=== PATIENT | female | born 1980 | race Caucasian/White ===

== ENCOUNTER → 2021-07-08 08:34 | Outpatient (CLI) | payer OTHER, SELFPAY ==
[2021-07-08 09:31] LABS: Add Manual Diff / Slide Review NO; Basophils Absolute Auto 100 /uL (0-100); Basophils Percent Auto 1.1 % (0-2); Eosinophils Absolute Auto 500 /uL (0-450); Eosinophils Percent Auto 5.6 % (2-4); Hematocrit 35.4 % (36-46); Hemoglobin 12.1 g/dL (12.0-16.0); Lymphocytes Absolute Auto 2200 /uL (1100-4500); Lymphocytes Percent Auto 23.6 % (25-40); Mean Corpuscular HGB Conc 34.2 % (30-36); Mean Corpuscular Volume 78.9 fL (80-100); Monocytes Absolute Auto 600 /uL (0-900); Monocytes Percent Auto 6.1 % (3-14); Neutrophils Absolute Auto 6000 /uL (1500-7000); Neutrophils Percent Auto 63.6 % (50-75); Platelet Count 328 X10^3/uL (150-400); Red Blood Cell Count 4.49 X10^6/uL (4.0-5.2); White Blood Cell Count 9.4 X10^3/uL (4.5-11.0)
[2021-07-08 09:44] LABS: Alanine Aminotransferase 18 IU/L (<35); Albumin 4.1 g/dL (3.5-5.0); Albumin Globulin Ratio 1.1 (1.0-2.8); Alkaline Phosphatase 56 U/L (38-126); Aspartate Aminotransferase 25 IU/L (14-36); BUN Creatinine Ratio 18.5 (6-22); Bilirubin Total 0.2 mg/dL (0.2-1.3); Blood Urea Nitrogen 15 mg/dL (7-17); Calcium 9.1 mg/dL (8.4-10.2); Carbon Dioxide 26 mmol/L (22-32); Chloride 107 mmol/L (98-107); Cholesterol 149 mg/dL (140-199); Estimated Glomerular Filt Rate > 60.0 mL/min (>60); Globulin 3.7 g/dL (1.7-4.1); Glucose 95 mg/dL (70-100); HDL Cholesterol 34 mg/dL (40-60); HEMOLYSIS < 15 (0-50); LDL Cholesterol Calculated 95 mg/dL (<100); Potassium 4.4 mmol/L (3.4-5.1); Sodium 139 mmol/L (137-145); Total Protein 7.8 g/dL (6.3-8.2); Triglycerides 102 mg/dL (35-150)
[2021-07-08 10:18] LABS: TSH w/ Reflex to FT4 1.59 uIU/mL (0.47-4.68)
[2021-07-08 10:19] LABS: Ferritin 30 ng/mL (6-137)
[2021-07-08 10:33] LABS: Total Iron Binding Capacity 370 ug/dL (265-497)
== END ==
PROVIDERS: PCP Registered Nurse; Referring Provider Registered Nurse; Visit Provider Registered Nurse
DX: D50.9 Iron deficiency anemia, unspecified (principal); Z82.49 Family history of ischemic heart disease and other diseases of the circulatory system; F32.9 Major depressive disorder, single episode, unspecified; Z83.49 Family history of other endocrine, nutritional and metabolic diseases
CPT/HCPCS: 36415; 80053; 80061; 82728; 83550; 84443; 85025

== ENCOUNTER → 2021-08-04 18:01 | Outpatient (CLI) | payer OTHER, SELFPAY ==
--- NOTE | 2021-08-04 18:03 | DI.MG.S_ITS ---
BILATERAL DIGITAL SCREENING MAMMOGRAM 3D/2D WITH CAD: 08/04/2021 CLINICAL: Routine screening. Baseline exam. No prior exams were available for comparison. There are scattered fibroglandular elements in both breasts. Current study was also evaluated with a Computer Aided Detection (CAD) system. No significant masses, calcifications, or other findings are seen in either breast. IMPRESSION: NEGATIVE There is no mammographic evidence of malignancy. A 1 year screening mammogram is recommended. This exam was interpreted at Station ID: [id number]. NOTE: For mammograms, a report in lay terms will be sent to the patient. Approximately 15% of breast malignancies will not be visualized mammographically. In the management of a palpable breast mass, a negative mammogram must not discourage biopsy of a clinically suspicious lesion. Electronically Signed By: Clif goode/silva:08/07/2021 07:37:35 letter sent: Normal Exam ACR BI-RADS Category 1: Negative 3341F
== END ==
PROVIDERS: PCP Registered Nurse; Referring Provider Registered Nurse; Visit Provider Registered Nurse
DX: Z12.31 Encounter for screening mammogram for malignant neoplasm of breast (principal)
CPT/HCPCS: 77063; 77067

== ENCOUNTER → 2022-02-06 11:17 | Outpatient (CLI) | payer OTHER, SELFPAY ==
--- NOTE | 2022-02-06 11:18 | DI.RAD.S_ITS ---
PROCEDURE: XR HAND RT MIN 3V INDICATIONS: Dog bite; ?FB, ?Fracture TECHNIQUE: 3 views of the hand(s) acquired. COMPARISON: None. FINDINGS: Bones: Minimal avulsion fracturing of the 5th middle phalanx base. Carpal bones are normally aligned. The remaining osseous structures appear maintained. Soft tissues: No radiopaque foreign body of the 5th digit. Metallic densities project over the 3rd and 4th metatarsal heads. IMPRESSION: 1. Minimal avulsion fracture of the 5th middle phalanx base. 2. No radiopaque foreign body of the 5th digit. Dictated by: Navid Grove M.D. on 02/06/2022 at 11:40 Approved by: Navid Grove M.D. on 02/06/2022 at 11:47
== END ==
PROVIDERS: PCP Registered Nurse; Referring Provider Student in an Organized Health Care Education/Training Program; Visit Provider Student in an Organized Health Care Education/Training Program
DX: S62.656B Nondisplaced fracture of middle phalanx of right little finger, initial encounter for open fracture (principal); W54.0XXA Bitten by dog, initial encounter
CPT/HCPCS: 73130

== ENCOUNTER → 2022-06-08 14:02 | Outpatient (CLI) | payer OTHER, SELFPAY | PROVIDERS: PCP Registered Nurse Diabetes Educator; Visit Provider Nurse Practitioner Family | DX: N34.3 Urethral syndrome, unspecified (principal) | CPT/HCPCS: 87077; 87086; 87186 ==

== ENCOUNTER → 2022-06-18 10:02 | Outpatient (CLI) | payer OTHER, SELFPAY | PROVIDERS: PCP Registered Nurse Diabetes Educator; Visit Provider Student in an Organized Health Care Education/Training Program | DX: R30.0 Dysuria (principal) | CPT/HCPCS: 87077; 87086; 87186 ==

== ENCOUNTER → 2022-09-28 12:29 | Outpatient (CLI) | payer OTHER, SELFPAY ==
--- NOTE | 2022-09-28 12:30 | DI.MG.S_ITS ---
BILATERAL DIGITAL SCREENING MAMMOGRAM 3D/2D WITH CAD: 09/28/2022 CLINICAL: Routine screening. Comparison is made to exam dated: 08/04/2021 mammogram - [facility]. There are scattered areas of fibroglandular density in both breasts (category b / 25%-50% glandular tissue). Current study was also evaluated with a Computer Aided Detection (CAD) system. No significant masses, calcifications, or other findings are seen in either breast. There has been no significant interval change. IMPRESSION: NEGATIVE There is no mammographic evidence of malignancy. A 1 year screening mammogram is recommended. Based on the Tyrer Cuzick model (a risk assessment model) the patient's lifetime risk is 9.5% and her 10 year risk is 1.4%. According to the ACR, ACS, and NCCN guidelines, an annual breast MRI exam along with mammogram is recommended if the patient's lifetime risk is 20% or greater. This exam was interpreted at Station ID: [id number]. NOTE: For mammograms, a report in lay terms will be sent to the patient. Approximately 15% of breast malignancies will not be visualized mammographically. In the management of a palpable breast mass, a negative mammogram must not discourage biopsy of a clinically suspicious lesion. Electronically Signed By: Clif goode/silva:09/28/2022 16:18:49 letter sent: Normal Exam ACR BI-RADS Category 1: Negative 3341F
== END ==
PROVIDERS: PCP Registered Nurse Diabetes Educator; Referring Provider Registered Nurse Diabetes Educator; Visit Provider Registered Nurse Diabetes Educator
DX: Z12.31 Encounter for screening mammogram for malignant neoplasm of breast (principal)
CPT/HCPCS: 77063; 77067

== ENCOUNTER → 2022-10-20 09:22 | Outpatient (CLI) | payer OTHER, SELFPAY ==
[2022-10-20 10:23] LABS: Hematocrit 35.7 % (36-46); Hemoglobin 11.9 g/dL (12.0-16.0); Mean Corpuscular HGB Conc 33.3 % (30-36); Mean Corpuscular Hemoglobin 25.2 PG (26-34); Mean Corpuscular Volume 75.7 fL (80-100); Platelet Count 340 X10^3/uL (150-400); Red Blood Cell Count 4.71 X10^6/uL (4.0-5.2); Red Cell Distribution Width 14.9 % (11.6-14.8)
[2022-10-20 10:48] LABS: Cholesterol 167 mg/dL (140-199); Glucose 90 mg/dL (70-100); HDL Cholesterol 42 mg/dL (40-60); LDL Cholesterol Calculated 104 mg/dL (<100); Triglycerides 106 mg/dL (35-150)
== END ==
PROVIDERS: PCP Registered Nurse Diabetes Educator; Referring Provider Registered Nurse Diabetes Educator; Visit Provider Registered Nurse Diabetes Educator
DX: D50.9 Iron deficiency anemia, unspecified (principal); Z00.00 Encounter for general adult medical examination without abnormal findings
CPT/HCPCS: 36415; 80061; 82947; 85027

== ENCOUNTER → 2023-11-12 16:54 | Outpatient (CLI) | payer OTHER, SELFPAY ==
--- NOTE | 2023-11-12 | DI.MG.S_ITS ---
BILATERAL DIGITAL SCREENING MAMMOGRAM 3D/2D WITH CAD: 11/12/2023 CLINICAL: Routine screening. Comparison is made to exams dated: 09/28/2022 mammogram and 08/04/2021 mammogram - [facility]. There are scattered areas of fibroglandular density in both breasts (category b / 25%-50% glandular tissue). Current study was also evaluated with a Computer Aided Detection (CAD) system. No significant masses, calcifications, or other findings are seen in either breast. There has been no significant interval change. IMPRESSION: NEGATIVE There is no mammographic evidence of malignancy. A 1 year screening mammogram is recommended. Based on the Tyrer Cuzick model (a risk assessment model) the patient's lifetime risk is 9.5% and her 10 year risk is 1.5%. According to the ACR, ACS, and NCCN guidelines, an annual breast MRI exam along with mammogram is recommended if the patient's lifetime risk is 20% or greater. This exam was interpreted at Station ID: [id number]. NOTE: For mammograms, a report in lay terms will be sent to the patient. Approximately 15% of breast malignancies will not be visualized mammographically. In the management of a palpable breast mass, a negative mammogram must not discourage biopsy of a clinically suspicious lesion. Electronically Signed By: Lewis beal/silva:11/13/2023 12:02:58 letter sent: Normal Exam ACR BI-RADS Category 1: Negative 3341F
== END ==
PROVIDERS: PCP Registered Nurse Diabetes Educator; Referring Provider Registered Nurse Diabetes Educator; Visit Provider Registered Nurse Diabetes Educator
DX: Z12.31 Encounter for screening mammogram for malignant neoplasm of breast (principal); R92.323 Mammographic fibroglandular density, bilateral breasts
CPT/HCPCS: 77063; 77067

== ENCOUNTER 2024-05-10 11:23 | Emergency (ER) | payer OTHER, SELFPAY ==
[2024-05-10 11:42] VITALS: BP 137/74; PULSE 87; RESP 18; TEMP 36.6; O2SAT 98; BMI 44.6
--- NOTE | 2024-05-10 12:21 | ED.BACK ---
HPI - Back Pain/Injury <Sohail Levin PA-C - Last Filed: 05/10/24 13:40> General Chief Complaint: Back Pain/Injury Stated Complaint: LLQ Back Pain Time Seen by Provider: 05/10/24 12:08 Source: patient History of Present Illness HPI Narrative: This is a 44-year-old female presents emergency department due to left lower back pain for the last 4 days. She was not recall any trauma or injuries to the left lower back but she states that she ?slept wrong?. She denies any hematuria, dysuria, urinary frequency, or any other concerning signs or symptoms. Pain gets worse with movement. Denies any saddle paresthesia or incontinence. Related Data Previous Rx's Medication Instructions Recorded bupropion HCl 150 mg 24 hr tablet, 150 mg PO QAM #90 tabs 10/15/23 extended release levonorgestrel-ethinyl estradiol 1 tab PO DAILY #84 tabs 10/15/23 0.1 mg-20 mcg tablet (Lessina) cyclobenzaprine 10 mg tablet 10 mg PO TID PRN muscle spasm #30 05/10/24 tabs Allergies Allergy/AdvReac Type Severity Reaction Status Date / Time No Known Drug Allergies Allergy Unverified 10/15/23 08:34 Review of Systems <Shoail Levin PA-C - Last Filed: 05/10/24 13:40> Review of Systems Narrative: GENERAL: Denies chills, fatigue, malaise, fever, sweats. HEENT: Denies sinus pain, ear pain, sore throat, difficulty swallowing, dizziness. RESPIRATORY: Denies dyspnea, cough, wheezing, hemoptysis, sputum. CARDIOVASCULAR: Denies chest pain, palpitations, orthopnea, edema, GASTROINTESTINAL: Denies nausea, vomiting, abdominal pain, diarrhea, constipation, melena. : Denies dysuria, frequency, incontinence, hematuria, urinary retention. MUSCULOSKELETAL: Reports left lower back pain, otherwise denies weakness, joint pain, or bony pain SKIN: Denies rash, skin lesions, or other NEUROLOGIC: Denies weakness, headache, numbness, change in speech, confusion, seizures, incoordination. PSYCHIATRIC: No concerning psychosocial issues. 12 point review of systems is negative except for those stated above Patient History <MAKENNA Cárdenas Last Filed: 05/10/24 13:40> Medical History Oral contraceptive pill surveillance Post depression (~2011) Depression (~2011) Anemia (~1997) Ovarian cyst (~1997) Surgical History Anesthesia History of surgical removal of pilonidal cyst (~09/2001) History of removal of ovarian cyst (~03/1998) Family History Father Prediabetes Mother Diabetes mellitus Grandfather History of heart disease Grandmother History of heart disease Grandfather Diabetes mellitus Social History Smoking Status: Never smoker alcohol intake: former substance use type: does not use Smoking Status: Never smoker Substance Use Type: does not use Exam <Sohail Levin PA-C - Last Filed: 05/10/24 13:40> Narrative Exam Narrative: GENERAL: Well-developed patient, in mild distress. HEAD: Atraumatic. Normocephalic. EYES: Pupils equal round and reactive. Extraocular motions intact. No scleral icterus. No injection or drainage. ENT: Nose without bleeding, purulent drainage. Throat without erythema, tonsillar hypertrophy or exudate. Airway patent. NECK: Trachea midline. Non tender EXTREMITIES: No edema or joint tenderness. NEURO: AOx3. SKIN: No rash or erythema of visible areas Back: No CVA tenderness to palpation Initial Vital Signs Initial Vital Signs: Vital Signs Temperature 97.9 F 05/10/24 11:42 Pulse Rate 87 05/10/24 11:42 Respiratory Rate 18 05/10/24 11:42 Blood Pressure 137/74 05/10/24 11:42 Pulse Oximetry 98 05/10/24 11:42 Oxygen Delivery Method Room Air 05/10/24 11:42 <Randy Cardenas DO - Last Filed: 05/10/24 13:55> Initial Vital Signs Initial Vital Signs: Vital Signs Temperature 97.9 F 05/10/24 11:42 Pulse Rate 87 05/10/24 11:42 Respiratory Rate 18 05/10/24 11:42 Blood Pressure 137/74 05/10/24 11:42 Pulse Oximetry 98 05/10/24 11:42 Oxygen Delivery Method Room Air 05/10/24 11:42 Course <Sohail Levin PA-C - Last Filed: 05/10/24 13:40> Orders Ordered: ED Orders 05/10/24 12:40 Ictotest Urine Stat Urine Culture Stat Urine Microscopic Stat 05/10/24 12:51 CT kidney ureter bladder (KUB) Stat Discontinued Medications Ketorolac Tromethamine (Ketorolac 30 Mg/Ml Vial) 15 mg IM NOW ONE Stop: 05/10/24 13:40 Vital Signs Vital signs: Vital Signs - 8 hr 05/10/24 11:42 Temperature 97.9 F Pulse Rate 87 Respiratory Rate 18 Blood Pressure 137/74 Pulse Oximetry 98 Oxygen Delivery Method Room Air <Randy Cardenas DO - Last Filed: 05/10/24 13:55> Orders Ordered: ED Orders 05/10/24 12:40 Ictotest Urine Stat Urine Culture Stat Urine Microscopic Stat 05/10/24 12:51 CT kidney ureter bladder (KUB) Stat Discontinued Medications Ketorolac Tromethamine (Ketorolac 30 Mg/Ml Vial) 15 mg IM NOW ONE Stop: 05/10/24 13:40 Vital Signs Vital signs: Vital Signs - 8 hr 05/10/24 11:42 Temperature 97.9 F Pulse Rate 87 Respiratory Rate 18 Blood Pressure 137/74 Pulse Oximetry 98 Oxygen Delivery Method Room Air MDM - Back Pain/Injury <Sohail Levin PA-C - Last Filed: 05/10/24 13:40> Lab Data Labs: Lab Results 05/10/24 Range/Units 12:40 Ur Bilirubin Confirm Negative (Negative) Urine RBC 5-10/hpf H (0-5/HPF) Urine WBC 0-1/hpf (0-5/HPF) Ur Squamous Epith Cells 0-1 /hpf (0-5/HPF) Urine Bacteria Few (2-10) H (None) Urine Mucus 1+ H (Negative) Ur Culture Indicated? Cult not indicated Vol Urine Centrifuged 10ml (spun) Urine Dip Bedside Urine Glucose Negative Bedside Urine Bilirubin +++ 4 Bedside Urine Ketone - Negative Urine Specific [place] 1.015 Bedside Urine Occult Blood +++ Bedside Urine pH 6.5 Bedside Urine Protein - Negative Bedside Urine Urobilinogen 0.2 Bedside Urine Nitrite - Negative Bedside Urine Leukocytes - Negative Esterase Imaging Data CT scan - abdomen/pelvis: Radiologist's Impression: [address] [address] [address] Scan Report Signed Patient: Farzaneh Cain MR#: [id number] : 1980 Acct:[id number] Age/Sex: 44 / F Date of Service: 05/10/24 Loc: ED Accession Number: [id number] Procedure: CT kidney ureter bladder (KUB) Ordering Provider: Sohail Levin P.A-C PROCEDURE: CT KIDNEY URETER BLADDER (KUB) INDICATIONS: L flank pain + hematuria TECHNIQUE: Axial sections were acquired from the lung bases to the pubic symphysis. Coronal and sagittal reformats were performed. For radiation dose reduction, the following was used: automated exposure control, adjustment of mA and/or kV according to patient size. COMPARISON: None. FINDINGS: Image quality: Diagnostic. Lower Chest: No significant findings. URINARY: Right Kidney: No stones or hydronephrosis. Right Ureter: No hydroureter. Left Kidney: No stones or hydronephrosis. Left Ureter: No hydroureter. Bladder: Normal wall thickness. No stones. ABDOMEN: Liver: No contour-deforming solid mass. Gallbladder: No radiopaque gallstones or wall thickening. Biliary ducts: No biliary dilation. Pancreas: No ductal dilation. Spleen: Size is within normal limits. Adrenal Glands: No adrenal nodules. Stomach and Bowel: Normal colonic caliber, without significant wall thickening. Peritoneum: No abnormal intraperitoneal fluid. No free air. Ventral Wall: No hernia. Abdominal Nodes: No enlarged retroperitoneal or mesenteric lymph nodes. Vessels: Aorta and inferior vena cava are normal in size. PELVIS: Pelvic Organs: Within the left lower pelvis in the region of the left adnexa there is a heterogeneous mass containing fat soft tissue as well as large calcification. It measures 9.9 x 5.2 x 6.1 cm. It is causing left right displacement of the uterus as well as adnexal structures. Pelvic Nodes: Unremarkable. Miscellaneous: No inguinal hernias are seen. Bones: Unremarkable. IMPRESSION: No obstructing stones or hydronephrosis. Heterogeneous mass in the lower pelvis containing fat, soft tissue and calcification most consistent with dermoid. Dictated by: Leny Troy M.D. on 05/10/2024 at 13:21 Approved by: Leny Troy M.D. on 05/10/2024 at 13:27 [facility] Narrative Medical decision making narrative: ED course: This is a 44-year-old female presents to the emergency department due to left lower back pain suspect to be musculoskeletal in nature. Her urine did show evidence of blood and shared decision-making he was utilized and CT was ordered to rule out a kidney stone. Negative for stones but did show a dermoid cyst which I recommended she follow up primary care provider about. We will treat with IM Toradol, cyclobenzaprine, CC: Left lumbar pain Complicating co-morbidities: None Data collected from: Previous notes Medical records reviewed: Patient was not been to this emergency department the past. Per her primary care doctor's no she was a history of depression, anemia, ovarian cyst with removal 20 years ago. Differential considered, but not limited to: Kidney stone, musculoskeletal strain Exam documented above, pertinent findings include: No pertinent findings Lab Test results independently reviewed as above. Pertinent findings: UA positive for blood Imaging studies independently reviewed: CT negative for kidney stone but did showed a dermoid cyst Scores Used: None MIPS Elements: None Consultations: None Treatments: IM Toradol Re-evaluations: None Discussion: Discussed plan with the patient was comfortable with the plan Diagnosis: Lumbar strain Disposition: see below, along with detailed discharge instructions that have been reviewed with patient as well as indications for ED re-evaluation and additional outpatient follow up <Randy Cardenas, - Last Filed: 05/10/24 13:55> Lab Data Labs: Lab Results 05/10/24 Range/Units 12:40 Ur Bilirubin Confirm Negative (Negative) Urine RBC 5-10/hpf H (0-5/HPF) Urine WBC 0-1/hpf (0-5/HPF) Ur Squamous Epith Cells 0-1 /hpf (0-5/HPF) Urine Bacteria Few (2-10) H (None) Urine Mucus 1+ H (Negative) Ur Culture Indicated? Cult not indicated Vol Urine Centrifuged 10ml (spun) Urine Dip Bedside Urine Glucose Negative Bedside Urine Bilirubin +++ 4 Bedside Urine Ketone - Negative Urine Specific [place] 1.015 Bedside Urine Occult Blood +++ Bedside Urine pH 6.5 Bedside Urine Protein - Negative Bedside Urine Urobilinogen 0.2 Bedside Urine Nitrite - Negative Bedside Urine Leukocytes - Negative Esterase Discharge Plan Departure Patient Disposition: Home Clinical Impression: Strain of lumbar region Instructions: DI for Back Strain or Sprain Activity Restrictions/Additional Instructions: Thank you for coming to the [facility] Emergency Department today. As we discussed the CT was negative for kidney stone but did show a dermoid cyst which she should follow up with your primary care provider about. The Toradol as well as muscle relaxants should help with the pain. Please follow up with the primary care provider for possible advanced imaging if the pain continues. Please return to the emergency department if you develop any numbness between her legs, fevers, urinary or bowel incontinence or any other concerning signs or symptoms. I hope you feel better soon. Please follow up with your primary care provider within a week if your symptoms continue. If you do not have a primary care provider please contact the [facility] Resource line at [phone]. They will ask some questions about your medical history and help you get set up with a provider in the community. Prescriptions: New cyclobenzaprine 10 mg tablet 10 mg PO TID PRN (Reason: muscle spasm) Qty: 30 0RF No Action bupropion HCl 150 mg tablet extended release 24 hr 150 mg PO QAM Qty: 90 3RF levonorgestrel-ethinyl estrad [Lessina] 0.1-20 mg-mcg tablet 1 tab PO DAILY Qty: 84 3RF Referrals: Gómez Ontiveros ARNP [Primary Care Provider] - Stand Alone Forms: Patient Portal/API ED Sign-out <Randy Cardenas, DO - Last Filed: 05/10/24 13:55> Cosign ED Attending Cosrosmeryature Attestation: Dr Cardenas Co-Sign Statement: I was available for consultation during this patient's emergency department visit. This chart is signed by myself for administrative purposes only. I did not have direct contact with this patient during this visit. They were seen independently by the APC.
--- NOTE | 2024-05-10 12:50 | PC.NURSE ---
Pt came to ED because she has been experiencing right lower back pain. States that she often gets muscular pain and this felt different than previous episodes. Pt has taken ibuprofen and flexeril and has been stretching without relief. Pt a&ox4.
--- NOTE | 2024-05-10 12:51 | DI.CT.S_ITS ---
PROCEDURE: CT KIDNEY URETER BLADDER (KUB) INDICATIONS: L flank pain + hematuria TECHNIQUE: Axial sections were acquired from the lung bases to the pubic symphysis. Coronal and sagittal reformats were performed. For radiation dose reduction, the following was used: automated exposure control, adjustment of mA and/or kV according to patient size. COMPARISON: None. FINDINGS: Image quality: Diagnostic. Lower Chest: No significant findings. URINARY: Right Kidney: No stones or hydronephrosis. Right Ureter: No hydroureter. Left Kidney: No stones or hydronephrosis. Left Ureter: No hydroureter. Bladder: Normal wall thickness. No stones. ABDOMEN: Liver: No contour-deforming solid mass. Gallbladder: No radiopaque gallstones or wall thickening. Biliary ducts: No biliary dilation. Pancreas: No ductal dilation. Spleen: Size is within normal limits. Adrenal Glands: No adrenal nodules. Stomach and Bowel: Normal colonic caliber, without significant wall thickening. Peritoneum: No abnormal intraperitoneal fluid. No free air. Ventral Wall: No hernia. Abdominal Nodes: No enlarged retroperitoneal or mesenteric lymph nodes. Vessels: Aorta and inferior vena cava are normal in size. PELVIS: Pelvic Organs: Within the left lower pelvis in the region of the left adnexa there is a heterogeneous mass containing fat soft tissue as well as large calcification. It measures 9.9 x 5.2 x 6.1 cm. It is causing left right displacement of the uterus as well as adnexal structures. Pelvic Nodes: Unremarkable. Miscellaneous: No inguinal hernias are seen. Bones: Unremarkable. IMPRESSION: No obstructing stones or hydronephrosis. Heterogeneous mass in the lower pelvis containing fat, soft tissue and calcification most consistent with dermoid. Dictated by: Leny Troy M.D. on 05/10/2024 at 13:21 Approved by: Leny Troy M.D. on 05/10/2024 at 13:27
[2024-05-10 12:57] LABS: Ictotest Urine Negative (Negative)
[2024-05-10 13:08] LABS: Urine Volume 10mL (spun)
[2024-05-10 13:10] LABS: Bacteria Urine Few (2-10); RBC Urine 5-10/HPF (0-5/HPF); Squamous Epithelial Cell Urine 0-1 /HPF (0-5/HPF); WBC Urine 0-1/HPF (0-5/HPF)
[2024-05-10 13:11] LABS: Culture Indicated Urine Cult Not Indicated; Mucus Urine 1+ (Negative)
[2024-05-10] MEDS: KETOROLAC 30 MG/ML VIAL 15 MG IM (14:06)
[2024-05-10 14:07] VITALS: BP 158/82; PULSE 85; RESP 16; O2SAT 97
== END 2024-05-10 14:29 | disposition home or self-care (01) ==
PROVIDERS: Emergency Provider Physician Assistant Medical; PCP Registered Nurse Diabetes Educator
DX: S39.012A Strain of muscle, fascia and tendon of lower back, initial encounter (principal); R31.9 Hematuria, unspecified
CPT/HCPCS: 74176; 81003; 81015; 87086; 96372; 99283; 99284; J1885

== ENCOUNTER → 2024-05-22 07:16 | Outpatient (CLI) | payer OTHER, SELFPAY ==
[2024-05-22 07:43] LABS: Hematocrit 35.9 % (36-46); Hemoglobin 11.8 g/dL (12.0-16.0); Mean Corpuscular HGB Conc 32.9 % (30-36); Mean Corpuscular Hemoglobin 25.6 PG (26-34); Mean Corpuscular Volume 77.9 fL (80-100); Platelet Count 360 X10^3/uL (150-400); Red Blood Cell Count 4.61 X10^6/uL (4.0-5.2); Red Cell Distribution Width 14.4 % (11.6-14.8); White Blood Cell Count 11.7 X10^3/uL (4.5-11.0)
[2024-05-22 08:30] LABS: Alanine Aminotransferase 16 IU/L (<35); Albumin 3.9 g/dL (3.5-5.0); Albumin Globulin Ratio 1.2 (1.0-2.8); Alkaline Phosphatase 66 U/L (38-126); Aspartate Aminotransferase 19 IU/L (14-36); BUN Creatinine Ratio 21.6 (6-22); Bilirubin Total 0.4 mg/dL (0.2-1.3); Blood Urea Nitrogen 19 mg/dL (7-17); Carbon Dioxide 24 mmol/L (22-32); Chloride 108 mmol/L (98-107); Cholesterol 152 mg/dL (140-199); Estimated Glomerular Filt Rate > 60 mL/min (>60); Globulin 3.3 g/dL (1.7-4.1); Glucose 98 mg/dL (70-100); HDL Cholesterol 44 mg/dL (40-60); HEMOLYSIS < 15 (0-50); Iron 52 ug/dL (37-170); LDL Cholesterol Calculated 87 mg/dL (<100); Potassium 4.6 mmol/L (3.4-5.1); Sodium 140 mmol/L (137-145); Total Protein 7.2 g/dL (6.3-8.2); Triglycerides 106 mg/dL (35-150)
[2024-05-22 08:41] LABS: Percent Iron Saturation 15 % (15-50); Total Iron Binding Capacity 337 ug/dL (265-497); Transferrin 266 mg/dL (206-381)
[2024-05-22 08:53] LABS: Cancer Antigen 125 13.6 U/mL (0-35)
[2024-05-22 08:56] LABS: TSH w/ Reflex to FT4 1.68 uIU/mL (0.47-4.68)
[2024-05-22 09:00] LABS: Ferritin 49 ng/mL (6-137)
[2024-05-22 14:20] LABS: Hemoglobin A1C% w Est Avg Glu 5.3 % (4.0-6.0)
[2024-05-25 10:25] LABS: Human Epididymis Prot 4 40.3 pmol/L (0.0-63.6)
== END ==
LOC: LAB 07:17
PROVIDERS: PCP Registered Nurse Diabetes Educator; Referring Provider Registered Nurse Diabetes Educator; Visit Provider Obstetrics & Gynecology
DX: Z00.00 Encounter for general adult medical examination without abnormal findings (principal); D50.9 Iron deficiency anemia, unspecified; D49.59 Neoplasm of unspecified behavior of other genitourinary organ
CPT/HCPCS: 36415; 80053; 80061; 82728; 83036; 83540; 83550; 84443; 85027; 86304; 86305

== ENCOUNTER → 2024-07-05 13:03 | Outpatient (CLI) | payer OTHER, SELFPAY ==
--- NOTE | 2024-07-05 13:04 | DI.RAD.S_ITS ---
PROCEDURE: XR CHEST 2V INDICATIONS: Cough TECHNIQUE: 2 views of the chest were acquired. COMPARISON: None. FINDINGS: Surgical changes and devices: None. Lungs and pleura: Lungs are clear. No pleural effusions or pneumothorax. Mediastinum: Mediastinal contours are normal. Heart size is normal. Bones and chest wall: No suspicious bony abnormalities. Soft tissues appear unremarkable. IMPRESSION: No acute cardiopulmonary abnormality is seen. Approved by: Sondra Simms M.D.,Ph.D. on 07/06/2024 at 22:41
== END ==
PROVIDERS: PCP Registered Nurse Diabetes Educator; Referring Provider Nurse Practitioner Family; Visit Provider Nurse Practitioner Family
DX: R05.9 Cough, unspecified (principal)
CPT/HCPCS: 71046

== ENCOUNTER → 2024-07-27 14:32 | Outpatient (CLI) | payer OTHER, SELFPAY ==
[2024-07-27 17:11] LABS: Monotest Negative (Negative)
== END ==
PROVIDERS: PCP Registered Nurse Diabetes Educator; Referring Provider Nurse Practitioner Family; Visit Provider Nurse Practitioner Family
DX: R05.1 Acute cough (principal); R05.9 Cough, unspecified
CPT/HCPCS: 0241U; 36415; 86318; 87070

== ENCOUNTER 2024-08-24 07:48 | Day surgery (SDC) | payer OTHER, SELFPAY ==
[2024-08-19 10:59] VITALS: BMI 44.8
[2024-08-24] VITALS (15 sets, daily range): BP systolic 93–137; BP diastolic 59–83; PULSE 64–99; RESP 12–18; TEMP 36.1–36.5; O2SAT 94–98; BMI 44.8
--- NOTE | 2024-08-24 | PATH_ITS ---
[facility] Accession Number: [id number] No. of containers..01 Tissue . 01 Material submitted: . ovary - LEFT OVARY AND TUBE . 01 Diagnosis: LEFT OVARY AND FALLOPIAN TUBE, OOPHORECTOMY AND SALPINGECTOMY: Mature cystic teratoma. Cross-section of unremarkable fallopian tube lumen identified. [facility] 08/27/2024 1126 Local . 01 Electronically signed: . Bette Mccallum MD, Pathologist NPI- [id number] . 01 Gross description: . Received in formalin with two patient identifiers and left ovary and fallopian tube, is a disrupted presumed ovary (46 grams, 7.4 x 4.8 x 4.5 cm in aggregate) with attached possible fallopian tube with no definitive fimbriae identified (6.2 x 0.4 cm). Also in the container is an aggregate of hair and salmeron grumous material (9.2 x 6.6 x 2.5 cm). The external surface of the ovary is inked blue. Sectioning reveals a heterogeneous, multiloculated cystic structure with contents ranging from clear and serous to cloudy and gelatinous. The solid surfaces are pink-salmeron to yellow with hard calcified areas. The presumed tube has smooth serosa and a small but presumed stellate lumen. Blending Plant Operator sections are submitted in A1-A5. ([id number]) /MRV 08/25/2024 1509 Local . 01 Microscopic: . Sections show ovarian parenchyma with cystic/firm areas consisting of benign mature dermal elements including squamous epithelium, adnexal and sebaceous glands. Mature adipose tissue is present. Also identified is cartilage and mature glial tissue. Immature elements are not identified in the sales donor recruitment representative sections submitted. . 01 Pathologist provided ICD-10: D27.1 . 01 CPT . 461598 Specimen Comment: A courtesy copy of this report has been sent to [facility] Pathology Performed at: [address] [address], [place], [place] [id number] MD Alexander Ayoub MD Phone: [phone]
[2024-08-24] MEDS: LACTATED RINGERS 1,000 ML 42 ML IV (08:31)
[2024-08-24] MEDS: ACETAMINOPHEN 325 MG TABLET 975 MG PO (08:32)
[2024-08-24] MEDS: SCOPOLAMINE 1 PATCH TOP (08:32)
--- NOTE | 2024-08-24 09:08 | P.HPOB_ITS ---
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 Patient last seen in office 06/02/24, procedure delayed secondary to patient schedule/preference. Patient denies interval changes in personal or family health history. She affirms desire to proceed with procedure as planned, verbalized understanding of increased likelihood of need to convert to open procedure via mini-lap or extension of infraumbilical incision due to size of ovarian neoplasm. FORMERLY [facility] Medical History (Updated 08/19/24 @ 11:07 by Tonya Sepulveda RN) BMI 40.0-44.9, adult (07/2024) Ovarian neoplasm Obstructive sleep apnea Oral contraceptive pill surveillance Post depression (~2011) Depression (~2011) Anemia (~1997) Ovarian cyst (~1997) Surgical History Anesthesia History of surgical removal of pilonidal cyst (~09/2001) History of removal of ovarian cyst (~03/1998) Family History Father Prediabetes Mother Diabetes mellitus Grandfather History of heart disease Grandmother History of heart disease Grandfather Diabetes mellitus Social History household members: spouse Smoking Status: Never smoker alcohol intake: former substance use type: does not use Meds Home Medications and Allergies Home Medications Medication Instructions Recorded Confirmed Type bupropion HCl 150 mg 24 hr tablet, 150 mg PO QAM #90 tabs 05/19/24 08/24/24 Rx extended release levonorgestrel-ethinyl estradiol 1 tab PO DAILY 06/02/24 08/24/24 History 0.1 mg-20 mcg tablet (Lessina) inhalational spacing device #1 ea 07/27/24 07/27/24 Rx (Aerochamber MV spacer) Allergies Allergy/AdvReac Type Severity Reaction Status Date / Time No Known Drug Allergies Allergy Verified 08/24/24 08:14 Exam Vital Signs (past 8 hours): - 08/24/24 08:20 Temperature 97.2 F L Pulse Rate 96 H Respiratory Rate 17 Blood Pressure 137/83 Pulse Oximetry 96 Oxygen Delivery Method Room Air Oxygen Delivery Method Room Air Const General: cooperative, comfortable and well developed Nutritional Appearance: obese Orientation: alert, awake and oriented x3 Limitations: mental status not altered Resp Effort & Inspection: normal respiratory effort and able to speak in complete sentences GI Inspection: large pannus and obesity Palpation: soft Other: noted prior pfannensteil scar Other: deferred Skin General: no rashes or lesions noted Neuro General: patient alert, patient awake and patient oriented x3 Extrem General: normal to inspection Psych Mental Status: mental status grossly normal Judgment: judgment good Assessment & Plan Assessment and plan (1) Ovarian neoplasm: Status: Acute Plan 44yo with known 9cm REGLA neoplasm consistent with teratoma presents for scheduled procedure, laparoscopic oophorectomy of affected side with additional bilateral salpingectomy for purposes of permanent surgical sterilization Patient affirms desire to proceed with procedure as scheduled anticipate dc to home later today pending clinical course Time-Based Coding :: [TOTAL MINUTES] spent with patient and on the chart (including review of chart, obtaining history, exam, reviewing outside data, placing orders, documenting exam and treatment plan, and counseling patient) on [DATE].
--- NOTE | 2024-08-24 09:08 | PM.PREOP ---
Pre-operative Note Interval Note History & Physical reviewed/Exam performed by Physician: Yes Changes to H&P: No H&P completed within 30 days and has changed as indicated here:: 08/24/24 ASA Class (for procedural sedation): II
[2024-08-24] MEDS: BUPIVACAINE 0.25% (PF) VIAL 20 ML INJ (09:57)
--- NOTE | 2024-08-24 10:03 | SUR.OPER ---
Lithotomy on padded OR bed, head on pillow, arms padded and tucked at sides. Legs secured in padded yellow fins stirrups.
--- NOTE | 2024-08-24 11:37 | P.OP_ITS ---
Operative Date/Time/Diagnoses Date of procedure: 08/24/24 Time of procedure: 09:45 Pre-op diagnosis: REGLA neoplasm, suspected teratoma Post-op diagnosis: same Procedure & Clinicians Procedure: laparoscopic L oophorectomy with salpingectomy Same procedure as scheduled: Yes Indications: 10cm REGLA neoplasm consistent with dermoid Surgeon: Concepcion Harris Industrial Roofer: Jennifer Rebolledo Anesthesia Type: General Operative Notes Findings: normal external female genitalia, perineum intra-abdominal survey significant for LLQ anterior adhesion consistent with prior procedure, noted midline fascial defect at level of prior pfannensteil incision with visible abdominus rectus grossly enlarged L ovary with neoplasm, encased in adhesions of large bowel/omentum R ovary and fallopian tube severely distorted with additional omental/bowel adhesion without ability to safely resect per prior operative plan Closure Type: primary Specimen(s): other (L ovary, salpingectomy ) Estimated Blood Loss (mL): 15 Procedure in detail: The patient was taken to the operating room, placed on the operating table in the supine position and intubated with ETT.? The patient was then placed in the lithotomy position with her legs in Sim stirrups.? The patient was then examined under anesthesia, then prepped and draped in a sterile fashion.? A boyd catheter was placed.? Time out was performed. A sterile sponge stick was placed in the vagina for atraumatic uterine manipulation. A 5mm incision was made infraumbilically and abdominal entry was achieved under direct visualization using the 5mm VisaPort trocar.? Abdomen was insufflated to 15mmHg, increasing insufflation thereafter to 18mmHg secondary to patient habitus.? Two lateral 5-mm ports were placed in a similar manner under direct visualization.? The left ovary was identified with noted distortion of ipsilateral anatomy including obliteration of the nativ fallopian tube and round ligament. Approximately 30min of adhesiolysis was meticulously performed using both blunt dissection as well as judicious use of PowerSeal to release omental and bowel adhesing to the ovary, taking great care to avoid any iatrogenic injury to the adjacent structures. Ultimately the infundibulopelvic ligament was able to identified, elevated, burned and ligated using PowerSeal device. Spontaneous rupture of cyst occurred during manipulation of neoplasm with release of mixed sterile purulent/fatty material with visible hair at the op ening but not spilling within the abdomen. This fluid was vigorously suction irrigated out of the abdomen. Ultimately the utero-ovarian artery was identified and burned/ligated/transected after which the fallopian tube and ovary were completely free from their [place] attachments. The underlying dissection bed was inspected and noted to be hemostatic. Attempt was made to visualize R adnexae and fallopian tube secondary to patient's expressed desire for permanent surgical sterilization via bilateral salpingectomy, however severely scared and adhesed to the R lateral pelvic sidewall. Decision made in tandem with Dr. Rebolledo to not attempt further dissection for completion of case due to distortion of anatomy and concern for increased risk of iatrogenic injury. The infraumbilical incision was extended to 1cm and the 5mm trocar was removed and replaced with 11mm. The medium endocatch bag was introduced laparoscopically and the specimen was placed within the bag under direct visualization. The endocatch bag was then closed and brought to the level of the incision. Insufflation was released and the bag was grasped with two annette clamps. The fascial incision was extended sharply using leigh scissors under direct visualization. The specimen was bluntly dissected for purposes of decompression within the bag, cyst contents noted to be again consistent with dermoid. Following adequate decompression the specimen and bag were removed via the infraumbilical incision without spill. The 11mm trocar was then replaced and abdominal survey was repeated. Dissection bed was once again inspected and noted to be hemostatic however very raw and friable in appearance. Perclot placed laparoscopically for further hemostasis prophylaxis. The pneumoperitoneum was vented and all laparoscopic ports were removed. The infraumbilical fascial incision was closed using 0- vicryl in a running fashion. All skin incisons were closed with 4-0 monocryl in subcuticular fashion followed by application of dermabond. The patient then had her legs taken out of stirrups and boyd catheter removed. All counts correct x2.? The patient tolerated the procedure well and without difficulty.? The patient was awakened from anesthesia and taken to PACU in stable condition. Complications: none Post-operative Condition: stable Disposition: PACU Plan for aftercare: anticipate dc to home pending clinical course
[2024-08-24] MEDS: fentaNYL 100 MCG/2 ML INJ IV ×2 (11:58→12:13)
[2024-08-24] MEDS: ONDANSETRON 4 MG/2 ML INJ IV (11:59)
[2024-08-24] MEDS: OXYCODONE IR 5 MG TABLET PO ×2 (11:59→12:44)
== END 2024-08-24 14:02 | disposition home or self-care (01) ==
PROVIDERS: PCP Registered Nurse Diabetes Educator; Referring Provider Obstetrics & Gynecology; Visit Provider Obstetrics & Gynecology
PROC: (CPT 58661; principal; 2024-08-24 09:45)
DX: D27.1 Benign neoplasm of left ovary (principal); N73.6 Female pelvic peritoneal adhesions (postinfective); M62.9 Disorder of muscle, unspecified
CPT/HCPCS: 58661; J0330; J1100; J1171; J1885; J2250; J2405; J2704; J3010; J3490

== ENCOUNTER → 2024-11-21 11:31 | Outpatient (CLI) | payer OTHER, SELFPAY ==
[2024-11-21 12:24] LABS: Influenza A - CEPHEID Flu A NEGATIVE (NEGATIVE); Influenza B - CEPHEID Flu B NEGATIVE (NEGATIVE); Respiratory Syncytial Virus Negative (Negative)
[2024-11-21 12:42] LABS: COVID-19 CEPHEID 4-PLEX PCR Negative (Negative)
== END ==
PROVIDERS: PCP Registered Nurse Diabetes Educator; Visit Provider Physician Assistant
DX: R05.1 Acute cough (principal); J02.9 Acute pharyngitis, unspecified
CPT/HCPCS: 0241U; 87070

== ENCOUNTER → 2025-09-02 07:11 | Outpatient (CLI) | payer OTHER, SELFPAY ==
[2025-09-02 08:10] LABS: Hematocrit 35.8 % (36-46); Hemoglobin 12.1 g/dL (12.0-16.0); Mean Corpuscular HGB Conc 33.8 % (30-36); Mean Corpuscular Hemoglobin 26.1 PG (26-34); Mean Corpuscular Volume 77.3 fL (80-100); Platelet Count 362 X10^3/uL (150-400)
[2025-09-02 08:41] LABS: Alanine Aminotransferase 25 IU/L (<35); Albumin 4.2 g/dL (3.5-5.0); Albumin Globulin Ratio 1.1 (1.0-2.8); Alkaline Phosphatase 72 U/L (38-126); Blood Urea Nitrogen 19 mg/dL (7-17); Calcium 9.0 mg/dL (8.4-10.2); Carbon Dioxide 27 mmol/L (22-32); Chloride 104 mmol/L (98-107); Cholesterol 156 mg/dL (140-199); Estimated Glomerular Filt Rate > 60 mL/min (>60); Globulin 4.0 g/dL (1.7-4.1); Glucose 94 mg/dL (70-99); HDL Cholesterol 38 mg/dL (40-60); HEMOLYSIS < 15 (0-50); Potassium 4.0 mmol/L (3.4-5.1); Sodium 139 mmol/L (137-145); Total Protein 8.2 g/dL (6.3-8.2); Triglycerides 120 mg/dL (35-150)
[2025-09-02 08:43] LABS: HEMOLYSIS < 15 (0-50); Iron 58 ug/dL (37-170)
[2025-09-02 08:53] LABS: Percent Iron Saturation 19 % (15-50); Total Iron Binding Capacity 305 ug/dL (265-497); Transferrin 260 mg/dL (206-381)
[2025-09-02 08:56] LABS: Free T4, Direct Thyroxine 0.89 ng/dL (0.78-2.19)
[2025-09-02 09:10] LABS: Thyroid Stimulating Hormone 1.95 uIU/mL (0.47-4.68)
[2025-09-02 09:13] LABS: Ferritin 56 ng/mL (6-137)
[2025-09-02 09:29] LABS: Vitamin B12 790 pg/mL (239-931)
[2025-09-02 09:59] LABS: Vitamin D 25 Hydroxy (D3) 30.7 ng/mL (30.0-100.0)
[2025-09-02 10:23] LABS: Hemoglobin A1C% w Est Avg Glu 5.5 % (4.0-6.0)
== END ==
PROVIDERS: PCP Registered Nurse Diabetes Educator; Referring Provider Registered Nurse Diabetes Educator; Visit Provider Registered Nurse Diabetes Educator
DX: Z00.00 Encounter for general adult medical examination without abnormal findings (principal); R53.83 Other fatigue; F32.9 Major depressive disorder, single episode, unspecified; D50.9 Iron deficiency anemia, unspecified
CPT/HCPCS: 36415; 80053; 80061; 82306; 82607; 82728; 83036; 83540; 83550; 84439; 84443; 85027